=== PATIENT | male | born 1950 | race American Indian/Alaskan Native ===

== ENCOUNTER 2019-01-22 01:30 | Emergency (ER) | payer MEDICARE ==
[2019-01-22 02:23] LABS: Basophils % (Auto) 0.4 % (0.0-1.8); Eosinophils # (Auto) 0.1 K/mm3 (0.0-0.4); Eosinophils % (Auto) 0.7 % (0.0-4.3); Hematocrit 44.4 % (35.5-45.6); Hemoglobin 14.9 gm/dl (11.8-15.2); Mean Corpuscular HGB Conc 34 % (32-34); Mean Corpuscular Volume 81 fl (84-94); Monocytes # (Auto) 0.9 K/mm3 (0.0-0.8); Monocytes % (Auto) 7.1 % (0.0-7.3); Platelet Count 236 K/mm3 (140-440); Red Blood Count 5.46 M/mm3 (3.65-5.03); Red Cell Distribution Width 14.9 % (13.2-15.2)
[2019-01-22] MEDS ORDERED: BOOSTRIX IM ONE ×2 (02:54→04:56)
[2019-01-22] MEDS ORDERED: XYLOCAINE 1%/ EPI 1:100,000 INFILTRATI ONE (02:54)
[2019-01-22] MEDS ORDERED: CARDENE 50 MG in NACL 0.9% 250ML 230 ML IV SCH (03:00)
[2019-01-22 03:09] LABS: Calcium 9.3 mg/dL (8.4-10.2)
[2019-01-22 03:10] LABS: INR 0.93 (0.87-1.13)
[2019-01-22 03:11] LABS: Partial Thromboplastin Time 25.8 Sec. (24.2-36.6); Thrombin Time 15.1 Sec. (15.1-19.6)
--- NOTE | 2019-01-22 03:20 | Emergency Department Report ---
ED Syncope HPI - General Chief Complaint: Syncope Stated Complaint: PASSED OUT CHIN INJURY Time Seen by Provider: 01/22/19 02:47 Source: patient, old records (no previous record for review) Exam Limitations: no limitations - History of Present Illness Initial Comments: 68-year-old male with a past medical history diabetes and hypertension presents to the hospital with complaints of syncopal episode. He was exiting the shower when he had generalized weakness. He was trying to make it but ended up waking up on the floor. Upon waking he had a chin laceration. Complains of chin and jaw pain since fall. Pain is moderate, constant, worse with movement of jaw. He denies headache, chest pain, shortness of breath, Alyson pain, nausea, vomiting, neck pain, focal weakness/numbness, leg edema, history of PE/DVT, or palpitations. He presents with significantly elevated blood pressure has been noncompliant for the blood pressure medicine for at least 1-2 years. He does not have a primary care doctor - Related Data Allergies/Adverse Reactions: Allergies No Known Allergies Allergy (Unverified 01/22/19 01:46) ED Review of Systems ROS: Stated complaint: PASSED OUT CHIN INJURY Other details as noted in HPI Comment: All other systems reviewed and negative ED Past Medical Hx - Past Medical History Previous Medical History?: Yes Hx Hypertension: Yes Hx Diabetes: Yes - Surgical History Past Surgical History?: No - Social History Smoking Status: Current Every Day Smoker Substance Use Type: None, Marijuana ED Physical Exam - General Limitations: No Limitations - Other Other exam information: General: No limitations, patient is alert in no acute distress Head exam: Chin laceration 3 cm. Eyes exam: Normal appearance, pupils equal reactive to light, extraocular movements intact ENT: Moist mucous membrane, contusion noted to in the lower lip, Tenderness to mandible. Limited range of motion without trismus. Neck exam: Normal inspection, full range of motion, no meningismus nontender Respiratory exam: Clear to auscultation bilateral, no wheezes, rales, crackles Cardiovascular: Normal rate and rhythm, normal heart sounds Abdomen: Soft, nondistended, and nontender, with normal bowel sounds, no rebound, or guarding Extremity: Full range of motion normal inspection no deformity Back: Normal Inspection, full range of motion, no tenderness Neurologic: Alert, oriented x3, cranial nerves intact, no motor or sensory deficit, [id number] function intact. GSC 15 Psychiatric: normal affect, normal mood Skin: Chin laceration 3 cm ED Course Vital Signs 01/22/19 01/22/19 01/22/19 01:41 01:42 01:46 Temperature 97.9 F Pulse Rate 92 H Respiratory 20 13 Rate Blood Pressure 256/125 Blood Pressure [Left] O2 Sat by Pulse 97 Oximetry 01/22/19 01/22/19 01/22/19 02:42 04:28 04:58 Temperature 98.6 F Pulse Rate 77 88 86 Respiratory 17 16 12 Rate Blood Pressure Blood Pressure 243/115 182/76 168/71 [Left] O2 Sat by Pulse 98 99 97 Oximetry - Consultations Consultation #1: 01/22/19 04:58 case d/w [facility] transfer service. Awaiting trauma team call back and acce ptance. - Laceration /Wound Repair Face Wound Location: face Wound Length (cm): 3 Wound's Depth, Shape: linear Wound Explored: clean Irrigated w/ Saline (ccs): 100 Betadine Prep?: Yes Anesthesia: Lidocaine w/ Epi Volume Anesthetic (ccs): 5 Suture Size/Type: 5:0, proline Number of Sutures: 6 Sterile Dressing Applied?: No ED Medical Decision Making - Lab Data Result diagrams: 01/22/19 02:10 01/22/19 02:10 Lab Results 01/22/19 01/22/19 01/22/19 Range/Units 02:10 02:10 02:10 WBC 12.3 H (4.5-11.0) K/mm3 RBC 5.46 H (3.65-5.03) M/mm3 Hgb 14.9 (11.8-15.2) gm/dl Hct 44.4 (35.5-45.6) % MCV 81 L (84-94) fl MCH 27 L (28-32) pg MCHC 34 (32-34) % RDW 14.9 (13.2-15.2) % Plt Count 236 (140-440) K/mm3 Lymph % (Auto) 8.0 L (13.4-35.0) % Caroline % (Auto) 7.1 (0.0-7.3) % Eos % (Auto) 0.7 (0.0-4.3) % Baso % (Auto) 0.4 (0.0-1.8) % Lymph # 1.0 L (1.2-5.4) K/mm3 Caroline # 0.9 H (0.0-0.8) K/mm3 Eos # 0.1 (0.0-0.4) K/mm3 Baso # 0.0 (0.0-0.1) K/mm3 Seg Neutrophils % 83.8 H (40.0-70.0) % Seg Neutrophils # 10.3 H (1.8-7.7) K/mm3 PT 13.0 (12.2-14.9) Sec. INR 0.93 (0.87-1.13) APTT 25.8 (24.2-36.6) Sec. Thrombin Time 15.1 (15.1-19.6) Sec. Sodium 135 L (137-145) mmol/L Potassium 4.1 (3.6-5.0) mmol/L Chloride 101.3 (98-107) mmol/L Carbon Dioxide 21 L (22-30) mmol/L Anion Gap 17 mmol/L BUN 21 H (9-20) mg/dL Creatinine 1.5 (0.8-1.5) mg/dL Estimated GFR 56 ml/min BUN/Creatinine Ratio 14 % Glucose 340 H (75-100) mg/dL POC Glucose (70-105) Calcium 9.3 (8.4-10.2) mg/dL Troponin T 0.027 (0.00-0.029) ng/mL 01/22/19 Range/Units 02:47 WBC (4.5-11.0) K/mm3 RBC (3.65-5.03) M/mm3 Hgb (11.8-15.2) gm/dl Hct (35.5-45.6) % MCV (84-94) fl MCH (28-32) pg MCHC (32-34) % RDW (13.2-15.2) % Plt Count (140-440) K/mm3 Lymph % (Auto) (13.4-35.0) % Caroline % (Auto) (0.0-7.3) % Eos % (Auto) (0.0-4.3) % Baso % (Auto) (0.0-1.8) % Lymph # (1.2-5.4) K/mm3 Caroline # (0.0-0.8) K/mm3 Eos # (0.0-0.4) K/mm3 Baso # (0.0-0.1) K/mm3 Seg Neutrophils % (40.0-70.0) % Seg Neutrophils # (1.8-7.7) K/mm3 PT (12.2-14.9) Sec. INR (0.87-1.13) APTT (24.2-36.6) Sec. Thrombin Time (15.1-19.6) Sec. Sodium (137-145) mmol/L Potassium (3.6-5.0) mmol/L Chloride (98-107) mmol/L Carbon Dioxide (22-30) mmol/L Anion Gap mmol/L BUN (9-20) mg/dL Creatinine (0.8-1.5) mg/dL Estimated GFR ml/min BUN/Creatinine Ratio % Glucose (75-100) mg/dL POC Glucose 282 H (70-105) Calcium (8.4-10.2) mg/dL Troponin T (0.00-0.029) ng/mL - EKG Data -: EKG Interpreted by Id EKG shows normal: sinus rhythm, axis (qrs 8), QRS complexes (qrsd 81), ST-T waves (no stemi) Rate: normal (86) - EKG Data When compared to previous EKG there are: previous EKG unavailable - Radiology Data Radiology results: report reviewed PROCEDURE: CT HEAD/BRAIN WO CON TECHNIQUE: Computerized tomography of the head was performed without contrast material. CT DOSE LENGTH PRODUCT: 920.5 mGycm HISTORY: neuro deficits <6hrs or sx present upon awakening COMPARISONS: None . FINDINGS: Skull and scalp: Normal . Paranasal sinuses: Normal . Ventricles and subarachnoid spaces: Normal . Cerebrum: No evidence of hemorrhage, acute infarction or mass . Cerebellum and brainstem: No evidence of hemorrhage, acute infarction or mass . Vasculature: Normal . Other: None . IMPRESSION: No evidence of hemorrhage, acute infarction or mass .. Referring Physician: KARENA NORIEGA Patient Name: ROXY DAVIES Date of : 1950 Sex: Male Report Date: 2019-01-22 Report Status: Finalized Findings [address] [place] [address] Cat Scan Report Signed Patient: ROXY DAVIES MR#: [id number] : 1950 Acct:[id number] Age/Sex: 68 / M ADM Date: 01/22/19 Loc: ED Attending Dr: Ordering Physician: KARENA NORIEGA MD Date of Service: 01/22/19 Procedure(s): CT facial bones wo con Accession Number(s): [id number] cc: KARENA NORIEGA MD PROCEDURE: CT FACIAL BONES WO CON TECHNIQUE: CT of the facial bones obtained without contrast. HISTORY: chin injury/syncope COMPARISONS: None FINDINGS: Acute fractures seen of the base of the mandible and with additional fractures of the bilateral condyles of the mandible with extension into the TMJs. There is bilateral dislocation of the TMJs. No orbital fracture visualized. Paranasal sinuses and mastoid air cells are well aerated. IMPRESSION: Acute fractures seen of the base of the mandible and with additional fractures of the bilateral condyles of the mandible with extension into the TMJs. There is bilateral dislocation of the TMJs.. PROCEDURE: CT CERVICAL SPINE WO CON TECHNIQUE: Computerized tomography of the cervical spine was performed from the skull base to T1 without contrast material. CT DOSE LENGTH PRODUCT: 627 mGycm HISTORY: syncope, head injury COMPARISONS: None . FINDINGS: No acute fracture or subluxation. Vertebral body heights are maintained. Multilevel degenerative changes of cervical spine most prominent at C3/C4, C5/C6, and C6/C7 with disc osteophyte complexes noted and mild central canal stenosis. Other: No additional findings . IMPRESSION: No acute fracture or subluxation the cervical spine. Multilevel degenerative changes of the cervical spine as described above. PROCEDURE: XR CHEST 1V AP TECHNIQUE: Chest radiograph single view. HISTORY: syncope, htn COMPARISONS: None . FINDINGS: Heart: Normal. Mediastinum/Vessels: Normal. Lungs/Pleural space: Normal. Bony thorax: No acute osseous abnormality. Life support devices: None. IMPRESSION: No acute cardiopulmonary abnormality. - Medical Decision Making pt with syncope and elevated blood pressure BP improving with Cardene drip laceration repaired, ancef for about empirically for open fracture Tetanus provided Patient continued to deny chest pain in the ED. initial trop neg Initial plan to admit here [facility] if he workup however, given patient's acute mandibular fractures he requires transfer. Patient has been accepted to [facility] for transfer and work up - Differential Diagnosis fracture, contusion, sprain, ICH, arrhythmia, hypertensive emergency Critical Care Time: No Critical care attestation.: If time is entered above; I have spent that time in minutes in the direct care of this critically ill patient, excluding procedure time. ED Disposition Clinical Impression: Syncope, Chin laceration, Uncontrolled hypertension, Noncompliance with medication regimen Mandibular fracture Qualifiers: Encounter type: initial encounter Fracture type: open Disposition: DC/TX-70 ANOTHER TYPE [facility]THCARE Is pt being admited?: No Condition: Stable Time of Disposition: 05:37 (awaiting transport to [facility])
--- NOTE | 2019-01-22 03:32 | Cat Scan Report ---
PROCEDURE: CT HEAD/BRAIN WO CON TECHNIQUE: Computerized tomography of the head was performed without contrast material. CT DOSE LENGTH PRODUCT: 920.5 mGycm HISTORY: neuro deficits <6hrs or sx present upon awakening COMPARISONS: None . FINDINGS: Skull and scalp: Normal . Paranasal sinuses: Normal . Ventricles and subarachnoid spaces: Normal . Cerebrum: No evidence of hemorrhage, acute infarction or mass . Cerebellum and brainstem: No evidence of hemorrhage, acute infarction or mass . Vasculature: Normal . Other: None . IMPRESSION: No evidence of hemorrhage, acute infarction or mass .. This document is electronically signed by Nehemiah Hurtado MD., January 22 2019 04:30:46 AM ET
--- NOTE | 2019-01-22 03:34 | Cat Scan Report ---
PROCEDURE: CT CERVICAL SPINE WO CON TECHNIQUE: Computerized tomography of the cervical spine was performed from the skull base to T1 wit hout contrast material. CT DOSE LENGTH PRODUCT: 627 mGycm HISTORY: syncope, head injury COMPARISONS: None . FINDINGS: No acute fracture or subluxation. Vertebral body heights are maintained. Multilevel degenerative changes of cervical spine most prominent at C3/C4, C5/C6, and C6/C7 with disc osteophyte complexes noted and mild central canal stenosis. Other: No additional findings . IMPRESSION: No acute fracture or subluxation the cervical spine. Multilevel degenerative changes of the cervical spine as described above. This document is electronically signed by Nehemiah Hurtado MD., January 22 2019 04:32:38 AM ET
--- NOTE | 2019-01-22 03:38 | Cat Scan Report ---
PROCEDURE: CT FACIAL BONES WO CON TECHNIQUE: CT of the facial bones obtained without contrast. HISTORY: chin injury/syncope COMPARISONS: None FINDINGS: Acute fractures seen of the base of the mandible and with additional fractures of the bilateral condy les of the mandible with extension into the TMJs. There is bilateral dislocation of the TMJs. No orbital fracture visualized. Paranasal sinuses and mastoid air cells are well aerated. IMPRESSION: Acute fractures seen of the base of the mandible and with additional fractures of the bilateral condy les of the mandible with extension into the TMJs. There is bilateral dislocation of the TMJs.. This document is electronically signed by Nehemiah Hurtado MD., January 22 2019 04:36:17 AM ET
--- NOTE | 2019-01-22 04:13 | XRay Report ---
PROCEDURE: XR CHEST 1V AP TECHNIQUE: Chest radiograph single view. HISTORY: syncope, htn COMPARISONS: None . FINDINGS: Heart: Normal. Mediastinum/Vessels: Normal. Lungs/Pleural space: Normal. Bony thorax: No acute osseous abnormality. Life support devices: None. IMPRESSION: No acute cardiopulmonary abnormality. This document is electronically signed by Peña Nance MD., January 22 2019 05:11:00 AM ET
[2019-01-22 04:59] VITALS: BP 168/71
[2019-01-22] MEDS ORDERED: DILAUDID IV ONE (05:04)
[2019-01-22] MEDS ORDERED: ANCEF/NS 1 GM/50 ML 1 GM/50 ML BAG IV ONE (05:25)
[2019-01-22] MEDS ORDERED: ANCEF ONE (05:29)
== END 2019-01-22 07:03 | disposition other institution (70) ==
LOC: ED 01:30
DX: S02.612B Fracture of condylar process of left mandible, initial encounter for open fracture (principal); S02.611B Fracture of condylar process of right mandible, initial encounter for open fracture; S01.81XA Laceration without foreign body of other part of head, initial encounter; I10 Essential (primary) hypertension; E11.9 Type 2 diabetes mellitus without complications; F17.200 Nicotine dependence, unspecified, uncomplicated; F12.90 Cannabis use, unspecified, uncomplicated; W18.30XA Fall on same level, unspecified, initial encounter; Y93.89 Activity, other specified; Y92.488 Other paved roadways as the place of occurrence of the external cause; Y99.8 Other external cause status
CPT/HCPCS: 12013; 36415; 70450; 70486; 71045; 72125; 80048; 82962; 84484; 85025; 85610; 85670; 85730; 90471; 90715; 93005; 93010; 96365; 96366; 96368; 96375; 99285; J0690; J1170; J7050